=== PATIENT | male | born 1955 | race Caucasian/White ===

== ENCOUNTER → 2017-02-21 | Outpatient (REF) | LOC: WSOH 10:00 | DX: Z02.4 Encounter for examination for driving license (principal) | CPT/HCPCS: G0463 ==

== ENCOUNTER 2019-03-24 10:28 | Day surgery (SDC) | payer BC ==
[~2019-03-24] VITALS: Ht 190.5 cm; Wt 102.3 kg
[2019-03-24 11:08] VITALS: BP 139/71; PULSE 67; TEMP 98.1
[2019-03-24] MEDS ORDERED: CYMBALTA 30MG30 MG PO (11:16)
[2019-03-24] MEDS ORDERED: PRIL40 PO (11:16)
[2019-03-24] MEDS ORDERED: SYNTHROID0.075 MG/T PO (11:16)
[2019-03-24] MEDS ORDERED: GLUCOSAMINE 1000 PO (11:17)
[2019-03-24] MEDS ORDERED: MOBIC15 MG PO (11:17)
[2019-03-24] MEDS ORDERED: ASPIRIN E.C. 8181 MG PO (11:18)
[2019-03-24] MEDS ORDERED: MULTI VITAMINS1 TAB PO (11:18)
--- NOTE | 2019-03-24 11:19 | NUR ---
TO RM AT 1034- CALL LIGHT IN REACH AT BEDSIDE.
[2019-03-24 15:06] VITALS: BP 125/77; PULSE 65
--- NOTE | 2019-03-24 15:06 | NUR ---
TO RM 7 PER CART FROM PACU. ALERT ORIENTED X3, TALKING TO STAFF AND . C/O PAIN 01/12. [employer] DRY INTACT. USING PILLOW FOR SUPPORT WHEN HE COUGHS. DENIES NAUSEA OR VOMITING.
[2019-03-24] MEDS ORDERED: ROXICODONE 55 MG/TAB PO (15:17)
[2019-03-24] MEDS ORDERED: TYLENOL 500MG500 MG PO (15:18)
[2019-03-24 15:20] VITALS: BP 122/76; PULSE 64
--- NOTE | 2019-03-24 15:20 | NUR ---
RECEIVED WATER AND TOLERATING WELL.
[2019-03-24 15:24] VITALS: TEMP 98.4
--- NOTE | 2019-03-24 15:35 | NUR ---
RECEIVED MUFFIN AND 2ND CUP OF WATER.
[2019-03-24 15:50] VITALS: BP 128/86; PULSE 67
[2019-03-24 16:05] VITALS: BP 117/77; PULSE 68
--- NOTE | 2019-03-24 16:05 | NUR ---
UP AMBULATED TO BATHROOM WITH STAND BY ASSIST AND TOLERATED WELL. UPON RETURNING TO PATIENT DENIES NEED FOR PAIN MEDICATION.
--- NOTE | 2019-03-24 16:20 | NUR ---
RECEIVED DISCHARGE INSTRUCTIONS AND VERBALIZED UNDERSTANDING. DISCONTINUED IV AND INT- CATHETER INTACT.
--- NOTE | 2019-03-24 16:30 | NUR ---
DISCHARGED PER WC BY NURSING STAFF TO PRIVATE CAR IN CARE OF - [facility]
== END 2019-03-24 17:02 | disposition home or self-care (01) ==
LOC: SDCO 10:28
DX: K40.20 Bilateral inguinal hernia, without obstruction or gangrene, not specified as recurrent (principal); E03.9 Hypothyroidism, unspecified; E06.3 Autoimmune thyroiditis; H40.1190 Primary open-angle glaucoma, unspecified eye, stage unspecified; E78.2 Mixed hyperlipidemia; Z85.820 Personal history of malignant melanoma of skin; Z79.899 Other long term (current) drug therapy; Z79.82 Long term (current) use of aspirin; G89.29 Other chronic pain; M54.5 Low back pain; Z90.49 Acquired absence of other specified parts of digestive tract; K21.9 Gastro-esophageal reflux disease without esophagitis; Z86.73 Personal history of transient ischemic attack (TIA), and cerebral infarction without residual deficits
CPT/HCPCS: C1781; J0690; J1100; J1885; J2405; J2704; J2710; J3010; J7120

== ENCOUNTER → 2021-08-17 | Outpatient (CLI) | payer BC ==
[~2021-08-17] MED LIST: ASPIRIN E.C. 8181 MG PO; CYMBALTA 30MG30 MG PO; GLUCOSAMINE 1000 PO; MOBIC15 MG PO; MULTI VITAMINS1 TAB PO; PRIL40 PO; ROXICODONE 55 MG/TAB PO; SYNTHROID0.075 MG/T PO; TYLENOL 500MG500 MG PO
== END ==
LOC: COL.RAD 10:30
DX: M25.551 Pain in right hip (principal)

== ENCOUNTER → 2023-08-07 | Outpatient (CLI) | payer MEDICARE, OTHER | LOC: MHCPAIN 14:53 | DX: M47.897 Other spondylosis, lumbosacral region (principal); M54.50 Low back pain, unspecified; M96.1 Postlaminectomy syndrome, not elsewhere classified | CPT/HCPCS: G0463 ==

== ENCOUNTER → 2023-11-21 | Outpatient (CLI) | payer MEDICARE, OTHER | LOC: MHCPAIN 12:51 | DX: M47.817 Spondylosis without myelopathy or radiculopathy, lumbosacral region (principal); M96.1 Postlaminectomy syndrome, not elsewhere classified | CPT/HCPCS: G0463 ==